=== PATIENT | female | born 1960 | race Caucasian/White ===

== ENCOUNTER 2017-11-27 06:19 | Inpatient (IN) | payer OTHER ==
[~2017-11-27 06:19] MED LIST: AMOXICILLIN500 M1 PO; CLARITHROMYCIN500 MG PO; LANSOPRAZOLE30 MG PO; LEVO-T25 MCG PO; LOSARTAN POTASS25 MG PO
[2017-11-28] MEDS ORDERED: CIPRO500 MG PO (16:31)
[2017-11-28] MEDS ORDERED: PERCOCET 5-3251 EACH PO (16:31)
[2017-11-28] MEDS ORDERED: POLY119PG PO (16:31)
== END 2017-11-29 09:30 | disposition home or self-care (01) | DRG 419 ==
LOC: CIR.AMB 06:19 → SEC-K 22:29 → SURH 22:29
PROVIDERS: Surgery
PROC: 0WQF4ZZ Repair Abdominal Wall, Percutaneous Endoscopic Approach (ICD-10-PCS; 2017-11-27)
PROC: BF13YZZ Fluoroscopy of Gallbladder and Bile Ducts using Other Contrast (ICD-10-PCS; 2017-11-27)
PROC: 0FT44ZZ Resection of Gallbladder, Percutaneous Endoscopic Approach (ICD-10-PCS; principal; 2017-11-27 12:15)
DX: K80.10 Calculus of gallbladder with chronic cholecystitis without obstruction (principal); K66.0 Peritoneal adhesions (postprocedural) (postinfection); K42.9 Umbilical hernia without obstruction or gangrene; K43.2 Incisional hernia without obstruction or gangrene; G89.18 Other acute postprocedural pain

== ENCOUNTER 2021-10-25 08:00 | Inpatient (IN) | payer OTHER ==
[~2021-10-25] VITALS: Ht 172.7 cm; Wt 81.6 kg
[~2021-10-25 08:00] MED LIST changes: +CIPRO500 MG PO; +PERCOCET 5-3251 EACH PO; +POLY119PG PO
[2021-10-25] MEDS ORDERED: RESTORIL30 M1 PO (11:03)
[2021-10-25] MEDS ORDERED: CLONAZEPAM2 MG PO (11:03)
[2021-10-25] MEDS ORDERED: PROZAC20 MG PO (11:04)
== END 2021-11-02 16:25 | DRG 470 ==
LOC: SURH 10-31 06:14 → O/R 10-31 06:14 → SURH 10-31 07:00
PROVIDERS: ADMIT Orthopaedic Surgery; ATTEND Orthopaedic Surgery
PROC: 0SRC0J9 Replacement of Right Knee Joint with Synthetic Substitute, Cemented, Open Approach (ICD-10-PCS; principal; 2021-10-31 07:00)
DX: M17.11 Unilateral primary osteoarthritis, right knee (principal); D62 Acute posthemorrhagic anemia; M85.661 Other cyst of bone, right lower leg; I10 Essential (primary) hypertension; Z20.822 Contact with and (suspected) exposure to COVID-19; E03.8 Other specified hypothyroidism